=== PATIENT | female | born 1955 | race Two or more races ===

== ENCOUNTER → 2019-06-19 08:18 | Outpatient (CLI) | payer OTHER | END | disposition home or self-care (01) | LOC: LAB 08:18 | DX: I10 Essential (primary) hypertension (principal); E78.49 Other hyperlipidemia; E03.8 Other specified hypothyroidism; A49.3 Mycoplasma infection, unspecified site ==

== ENCOUNTER → 2021-02-11 | Outpatient (CLI) | payer OTHER | END | disposition home or self-care (01) | LOC: RAD 11:21 | PROVIDERS: ATTEND Internal Medicine Pulmonary Disease | DX: I10 Essential (primary) hypertension (principal); J45.40 Moderate persistent asthma, uncomplicated; E11.9 Type 2 diabetes mellitus without complications; E78.00 Pure hypercholesterolemia, unspecified ==

== ENCOUNTER 2021-03-02 09:00 | Outpatient (CLI) | payer OTHER | END 2021-03-02 09:15 | disposition home or self-care (01) | LOC: PPH VACUNA 09:00 | PROVIDERS: ATTEND Emergency Medicine Pediatric Emergency Medicine | DX: Z23 Encounter for immunization (principal) ==

== ENCOUNTER 2021-09-11 08:00 | Outpatient (CLI) | payer OTHER | END 2021-09-11 08:30 | disposition home or self-care (01) | LOC: PPH VACUNA 08:00 | PROVIDERS: ATTEND Emergency Medicine Pediatric Emergency Medicine | DX: Z23 Encounter for immunization (principal) ==

== ENCOUNTER 2023-06-14 09:50 | Outpatient (CLI) | payer OTHER | END 2023-06-14 10:00 | disposition home or self-care (01) | LOC: RAD 09:50 | PROVIDERS: ATTEND Internal Medicine Pulmonary Disease | DX: E11.9 Type 2 diabetes mellitus without complications (principal); E78.00 Pure hypercholesterolemia, unspecified; I10 Essential (primary) hypertension; R09.82 Postnasal drip; J42 Unspecified chronic bronchitis ==

== ENCOUNTER 2024-03-01 08:01 | Outpatient (CLI) | payer OTHER | END 2024-03-01 08:13 | disposition home or self-care (01) | LOC: MRI 08:01 | PROVIDERS: ATTEND Obstetrics & Gynecology | DX: C56.1 Malignant neoplasm of right ovary (principal); N83.201 Unspecified ovarian cyst, right side | CPT/HCPCS: 72197 ==

== ENCOUNTER 2024-05-04 09:01 | Emergency (ER) | payer OTHER ==
[~2024-05-04] VITALS: Ht 157.5 cm; Wt 57.2 kg
[2024-05-04] MEDS ORDERED: PROGESTERONE200 MG PO (09:31)
[2024-05-04] MEDS ORDERED: RAMIPRIL2.5 MG PO (09:32)
[2024-05-04] MEDS ORDERED: ATORVASTATIN CA40 MG PO (09:32)
[2024-05-04] MEDS ORDERED: LEVALBUTER0.63 MG/3 IH (09:32)
[2024-05-04] MEDS ORDERED: JANUMET 50-5001 EACH PO (09:32)
[2024-05-04] MEDS ORDERED: FENOFIBRATE160 MG PO (09:32)
[2024-05-04 10:59] LABS: HEMATOCRIT 42.3 % (36.0-45.00); HEMOGLOBIN 14.4 g/dL (12.0-15.00); MEAN CORPUSCULAR HEMOGLOBIN 31.4 pg (27.00-32.0); MEAN CORPUSCULAR HGB CONC 34.1 g/dl (32.0-36.0); PLATELET COUNT 217 K/uL (150-450); RED CELL DISTRIBUTION WIDTH 13.5 % (11.5-14.5)
[2024-05-04 11:27] LABS: PH,URINE 6.5 (5.0-8.0); URINE APPEARANCE Clear; URINE BILIRRUBIN Negative (NEGATIVE); URINE BLOOD Negative; URINE COLOR Yellow; URINE GLUCOSE Negative (NEGATIVE); URINE KETONE Negative (NEGATIVE); URINE LEUKOCYTE Negative; URINE NITRATE Negative; URINE PROTEIN Trace (NEGATIVE); URINE UROBILINOGEN 0.2 E.U./dl
[2024-05-04 11:31] LABS: URINE BACTERIA 1043.9 uL (0.0-1933); URINE EPITHELIAL CELLS 19.4 uL (0.0-38.8); URINE WBC 12.9 uL (0.0-23.2)
[2024-05-04] MEDS ORDERED: FAMOTIDINE/PF 20 MG/2 ML VIAL IV PUSH STA (11:48)
[2024-05-04] MEDS ORDERED: ONDANSETRON HCL 2 MG/ML VIAL IV STA (11:48)
[2024-05-04 11:53] LABS: URINE CAST 0.29 uL (0.0-1.40); URINE RBC 1.6 uL (0.0-20.8)
[2024-05-04 11:54] LABS: CALCIUM 10.1 mg/dL (8.5-10.1); CREATININE SERUM 0.81 mg/dL (0.55-1.02); GFR 70.53; POTASSIUM 3.92 mEq/L (3.5-5.1)
== END 2024-05-04 12:55 | disposition home or self-care (01) ==
LOC: ER 09:03
PROVIDERS: General Practice
DX: J10.1 Influenza due to other identified influenza virus with other respiratory manifestations (principal); Z20.822 Contact with and (suspected) exposure to COVID-19; E11.9 Type 2 diabetes mellitus without complications; Z79.84 Long term (current) use of oral hypoglycemic drugs

== ENCOUNTER 2024-05-30 08:42 | Outpatient (CLI) | payer OTHER ==
[~2024-05-30 08:42] MED LIST: ATORVASTATIN CA40 MG PO; FENOFIBRATE160 MG PO; JANUMET 50-5001 EACH PO; LEVALBUTER0.63 MG/3 IH; PROGESTERONE200 MG PO; RAMIPRIL2.5 MG PO
== END 2024-05-30 09:00 | disposition home or self-care (01) ==
LOC: TOM 08:42
PROVIDERS: ATTEND Internal Medicine Pulmonary Disease
DX: J45.40 Moderate persistent asthma, uncomplicated (principal)